=== PATIENT | male | born 1975 | race Caucasian/White ===

== ENCOUNTER 2017-11-19 16:16 | Emergency (ER) | payer OTHER ==
[~2017-11-19] VITALS: Ht 167.6 cm; Wt 70.3 kg
[~2017-11-19 16:16] MED LIST: BACL10 PO; CYCL10 PO; Flomax0.4 MG PO; MUPI1NAS; Norco 5-325 Ta1 EACH PO; SULTRISS PO; TRAM50 PO
[2017-11-19] MEDS ORDERED: CLARITIN10 MG PO (16:44)
== END 2017-11-19 16:57 | disposition home or self-care (01) ==
LOC: ER 16:16
DX: T78.49XA Other allergy, initial encounter (principal); F17.200 Nicotine dependence, unspecified, uncomplicated
CPT/HCPCS: 99282; J1100

== ENCOUNTER 2018-04-12 17:41 | Emergency (ER) | payer OTHER ==
[~2018-04-12] VITALS: Ht 162.6 cm; Wt 68.0 kg
[~2018-04-12 17:41] MED LIST changes: +CLARITIN10 MG PO
[2018-04-12] MEDS ORDERED: KETO10 PO (19:02)
== END 2018-04-12 19:11 | disposition home or self-care (01) ==
LOC: ER 17:41
DX: M71.22 Synovial cyst of popliteal space [Baker], left knee (principal); F17.200 Nicotine dependence, unspecified, uncomplicated; Z79.899 Other long term (current) drug therapy
CPT/HCPCS: 93971; 99283-25

== ENCOUNTER 2023-12-04 20:04 | Emergency (ER) | payer OTHER ==
[~2023-12-04] VITALS: Ht 157.5 cm; Wt 68.0 kg
[~2023-12-04 20:04] MED LIST changes: +KETO10 PO
[2023-12-04 20:28] VITALS: BP 143/98
== END 2023-12-04 21:30 | disposition left against medical advice (07) ==
LOC: ER 20:04
DX: T17.298A Other foreign object in pharynx causing other injury, initial encounter (principal); Z53.29 Procedure and treatment not carried out because of patient's decision for other reasons
CPT/HCPCS: 99281

== ENCOUNTER 2024-12-25 04:36 | Observation (INO) | payer OTHER ==
[~2024-12-25] VITALS: Ht 162.6 cm; Wt 72.6 kg
[~2024-12-25 04:36] MED LIST changes: +IBUP400 PO; +MUPIROCIN2210 TOP
[2024-12-25 05:37] LABS: BASOPHILS ABSOLUTE AUTO 0.09 K/mm3 (0.00-0.23); BASOPHILS PERCENT AUTO 1 % (0-2); EOSINOPHILS ABSOLUTE AUTO 0.01 K/mm3 (0.00-0.68); EOSINOPHILS PERCENT AUTO 0 % (0-6); Hematocrit 40.4 % (37.0-53.0); Hemoglobin 14.1 g/dL (13.5-17.5); IMMATURE GRAN ABSOLUTE AUTO 0.03 K/mm3 (0.00-0.10); IMMATURE GRAN PERCENT AUTO 0 % (0-1); LYMPHOCYTES ABSOLUTE AUTO 2.30 K/mm3 (0.84-5.20); LYMPHOCYTES PERCENT AUTO 23 % (21-46); MONOCYTES ABSOLUTE AUTO 1.25 K/mm3 (0.16-1.47); MONOCYTES PERCENT AUTO 13 % (4-13); Mean Corpuscular HGB Conc 34.9 g/dL (31.5-36.5); Mean Corpuscular Volume 90 fL (80-100); NEUTROPHILS ABSOLUTE AUTO 6.31 K/mm3 (1.96-9.15); NEUTROPHILS PERCENT AUTO 63 % (41-73); NRBC ABSOLUTE 0.00 K/mm3 (0.00-0.02); NRBC Auto 0.0 /100 WBC (0.0-0.2); Platelet Count 213 K/mm3 (150-400); RDW Coefficient Variation 11.7 % (11.7-14.2); RDW Standard Deviation 38.3 fL (35.1-46.3)
[2024-12-25 05:58] LABS: Alanine Aminotransfer (ALT/SGP 121.0 U/L (12-78); Albumin, Blood 4.2 g/dL (3.4-5.0); Albumin/Globulin Ratio 1.1 (0.8-1.8); Anion Gap 8.0 mmol/L (3-11); Aspartate Aminotrans (AST/SGOT 185.0 U/L (12-37); Bilirubin, Total 1.8 mg/dL (0.1-1.0); Blood Urea Nitrogen 28.0 mg/dL (8-24); CO2, Blood 27.0 mmol/L (21-32); Calcium, Blood 9.4 mg/dL (8.5-10.1); Chloride, Blood 106.0 mmol/L (98-108); Creatinine, Blood 1.15 mg/dL (0.60-1.20); Globulin, Blood 3.9 g/dL (2.2-4.0); Glucose, Blood 86.0 mg/dL (70-99); Potassium, Blood 4.0 mmol/L (3.5-5.5); Sodium, Blood 137.0 mmol/L (136-145); Total Protein, Blood 8.1 g/dL (6.4-8.2)
[2024-12-25 06:59] LABS: U Amphetamine Screen DETECTED; U Barbituate Screen Not Detected; U Benzodiazapine Screen Not Detected; U Buprenorphine Screen Not Detected; U Cannabinoids Screen Not Detected; U Cocaine Screen Not Detected; U Methadone Screen Not Detected; U Methamphetamine Screen DETECTED; U Opiates Screen Not Detected; U Oxycodone Screen Not Detected; U Phencyclidine Screen Not Detected
[2024-12-25 08:15] VITALS: BP 142/105
--- NOTE | 2024-12-25 12:40 | NUR ---
REPORT FROM POLA CORNEJO RN CARING FOR PATIENT. ALL QUESTIONS ANSWERED. WAITING FOR TRANSPORT TO MEDICAL FLOOR.
[2024-12-25] MEDS ORDERED: Buspirone HCl15 MG PO (13:48)
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
[2024-12-26] MEDS ORDERED: Enoxaparin 40 MG/0.4 ML SYR SC SCH (09:00)
[2024-12-26] MEDS ORDERED: CEPH500 PO (18:16)
== END 2024-12-25 14:04 | disposition left against medical advice (07) ==
LOC: ER 04:36 → MEDS 11:31
PROVIDERS: Emergency Medicine; ADMIT Internal Medicine
DX: R79.89 Other specified abnormal findings of blood chemistry (principal); F15.10 Other stimulant abuse, uncomplicated; R79.1 Abnormal coagulation profile; I10 Essential (primary) hypertension; Z53.29 Procedure and treatment not carried out because of patient's decision for other reasons
CPT/HCPCS: 71046; 71260; 80053; 84484; 85025; 85379; 93005; 93010; 99285-25; A9270; G0378; Q9967

== ENCOUNTER 2024-12-26 13:33 | Emergency (ER) | payer OTHER ==
[~2024-12-26] VITALS: Ht 162.6 cm; Wt 72.6 kg
[~2024-12-26 13:33] MED LIST changes: +Buspirone HCl15 MG PO
[2024-12-26 15:02] LABS: BASOPHILS ABSOLUTE AUTO 0.09 K/mm3 (0.00-0.23); BASOPHILS PERCENT AUTO 1 % (0-2); EOSINOPHILS ABSOLUTE AUTO 0.07 K/mm3 (0.00-0.68); EOSINOPHILS PERCENT AUTO 1 % (0-6); Hematocrit 39.5 % (37.0-53.0); Hemoglobin 13.6 g/dL (13.5-17.5); IMMATURE GRAN ABSOLUTE AUTO 0.03 K/mm3 (0.00-0.10); IMMATURE GRAN PERCENT AUTO 0 % (0-1); LYMPHOCYTES ABSOLUTE AUTO 2.07 K/mm3 (0.84-5.20); LYMPHOCYTES PERCENT AUTO 20 % (21-46); MONOCYTES ABSOLUTE AUTO 1.26 K/mm3 (0.16-1.47); MONOCYTES PERCENT AUTO 12 % (4-13); Mean Corpuscular HGB Conc 34.4 g/dL (31.5-36.5); Mean Corpuscular Volume 89 fL (80-100); NEUTROPHILS ABSOLUTE AUTO 7.08 K/mm3 (1.96-9.15); NEUTROPHILS PERCENT AUTO 67 % (41-73); NRBC ABSOLUTE 0.00 K/mm3 (0.00-0.02); NRBC Auto 0.0 /100 WBC (0.0-0.2); Platelet Count 266 K/mm3 (150-400); RDW Coefficient Variation 11.8 % (11.7-14.2); RDW Standard Deviation 38.3 fL (35.1-46.3)
[2024-12-26 15:40] LABS: Alanine Aminotransfer (ALT/SGP 91.0 U/L (12-78); Albumin, Blood 3.7 g/dL (3.4-5.0); Albumin/Globulin Ratio 0.9 (0.8-1.8); Anion Gap 8.0 mmol/L (3-11); Aspartate Aminotrans (AST/SGOT 90.0 U/L (12-37); Bilirubin, Total 1.2 mg/dL (0.1-1.0); Blood Urea Nitrogen 22.0 mg/dL (8-24); CO2, Blood 25.0 mmol/L (21-32); Calcium, Blood 8.7 mg/dL (8.5-10.1); Chloride, Blood 108.0 mmol/L (98-108); Creatinine, Blood 1.04 mg/dL (0.60-1.20); Globulin, Blood 4.1 g/dL (2.2-4.0); Glucose, Blood 100.0 mg/dL (70-99); Potassium, Blood 3.5 mmol/L (3.5-5.5); Sodium, Blood 137.0 mmol/L (136-145); Total Protein, Blood 7.8 g/dL (6.4-8.2)
[2024-12-26 16:29] VITALS: BP 128/85
[2024-12-26] MEDS ORDERED: CEPH500 PO (18:16)
== END 2024-12-26 18:20 | disposition home or self-care (01) ==
LOC: ER 13:33
PROVIDERS: Emergency Medicine
DX: L03.119 Cellulitis of unspecified part of limb (principal); L73.9 Follicular disorder, unspecified; Z87.891 Personal history of nicotine dependence
CPT/HCPCS: 71046; 80053; 83880; 84484; 85025; 93005; 93010; 99283-25

== ENCOUNTER 2025-04-23 15:32 | Inpatient (IN) | payer OTHER ==
[~2025-04-23] VITALS: Ht 162.6 cm; Wt 64.7 kg
[~2025-04-23 15:32] MED LIST changes: +CEPH500 PO
[2025-04-23] MEDS ORDERED: Vancomycin HCL 2,000 MG in NS 520 ML IV ONE (16:15)
[2025-04-23 16:32] LABS: BASOPHILS ABSOLUTE AUTO 0.08 K/mm3 (0.00-0.23); BASOPHILS PERCENT AUTO 0 % (0-2); EOSINOPHILS ABSOLUTE AUTO 0.00 K/mm3 (0.00-0.68); EOSINOPHILS PERCENT AUTO 0 % (0-6); Hematocrit 40.7 % (37.0-53.0); Hemoglobin 13.3 g/dL (13.5-17.5); IMMATURE GRAN ABSOLUTE AUTO 0.11 K/mm3 (0.00-0.10); IMMATURE GRAN PERCENT AUTO 1 % (0-1); LYMPHOCYTES ABSOLUTE AUTO 1.15 K/mm3 (0.84-5.20); LYMPHOCYTES PERCENT AUTO 5 % (21-46); MONOCYTES ABSOLUTE AUTO 2.32 K/mm3 (0.16-1.47); MONOCYTES PERCENT AUTO 11 % (4-13); Mean Corpuscular HGB Conc 32.7 g/dL (31.5-36.5); Mean Corpuscular Volume 88 fL (80-100); NEUTROPHILS ABSOLUTE AUTO 18.07 K/mm3 (1.96-9.15); NEUTROPHILS PERCENT AUTO 83 % (41-73); NRBC ABSOLUTE 0.00 K/mm3 (0.00-0.02); NRBC Auto 0.0 /100 WBC (0.0-0.2); Platelet Count 344 K/mm3 (150-400); RDW Coefficient Variation 12.9 % (11.7-14.2); RDW Standard Deviation 41.8 fL (35.1-46.3)
[2025-04-23 16:53] LABS: Alanine Aminotransfer (ALT/SGP 122.0 U/L (12-78); Albumin, Blood 3.1 g/dL (3.4-5.0); Albumin/Globulin Ratio 0.7 (0.8-1.8); Anion Gap 10.0 mmol/L (3-11); Aspartate Aminotrans (AST/SGOT 129.0 U/L (12-37); Bilirubin, Total 0.9 mg/dL (0.1-1.0); Blood Urea Nitrogen 14.0 mg/dL (8-24); CO2, Blood 27.0 mmol/L (21-32); Calcium, Blood 9.1 mg/dL (8.5-10.1); Chloride, Blood 96.0 mmol/L (98-108); Creatinine, Blood 1.01 mg/dL (0.60-1.20); Globulin, Blood 4.7 g/dL (2.2-4.0); Glucose, Blood 80.0 mg/dL (70-99); Potassium, Blood 4.0 mmol/L (3.5-5.5); Sodium, Blood 129.0 mmol/L (136-145); Total Protein, Blood 7.8 g/dL (6.4-8.2)
[2025-04-23] MEDS ORDERED: NS 1,000 ML IV SCH ×2 (17:25→19:00)
[2025-04-23] MEDS ORDERED: FLU VACC TS2025-26(6MOS UP)/PF 45 MCG/0.5 ML SYRINGE IM SCH (18:55)
[2025-04-23] MEDS ORDERED: Ondansetron HCl 2 MG / ML 2ML Vial IV PRN (19:00)
[2025-04-23] MEDS ORDERED: Vancomycin (Pharmacy Consult) IV SCH (19:00)
[2025-04-23] MEDS ORDERED: NS 1,000 ML IV ONE (19:00)
[2025-04-23] MEDS ORDERED: Lactobacil 2-S.Thermo-Bifido 1 1 Cap PO SCH ×2 (21:00)
[2025-04-23] MEDS ORDERED: CeFAZolin Sodium 2,000 MG in NS 100 ML IV SCH (21:00)
[2025-04-23] MEDS ORDERED: Prinivil10 MG PO (21:40)
[2025-04-23 21:56] VITALS: BP 134/85
[2025-04-24 04:08] VITALS: BP 127/76
[2025-04-24 05:10] LABS: BASOPHILS ABSOLUTE AUTO 0.07 K/mm3 (0.00-0.23); BASOPHILS PERCENT AUTO 0 % (0-2); EOSINOPHILS ABSOLUTE AUTO 0.01 K/mm3 (0.00-0.68); EOSINOPHILS PERCENT AUTO 0 % (0-6); Hematocrit 35.3 % (37.0-53.0); Hemoglobin 11.7 g/dL (13.5-17.5); IMMATURE GRAN ABSOLUTE AUTO 0.09 K/mm3 (0.00-0.10); IMMATURE GRAN PERCENT AUTO 1 % (0-1); LYMPHOCYTES ABSOLUTE AUTO 1.86 K/mm3 (0.84-5.20); LYMPHOCYTES PERCENT AUTO 11 % (21-46); MONOCYTES ABSOLUTE AUTO 1.95 K/mm3 (0.16-1.47); MONOCYTES PERCENT AUTO 12 % (4-13); Mean Corpuscular HGB Conc 33.1 g/dL (31.5-36.5); Mean Corpuscular Volume 89 fL (80-100); NEUTROPHILS ABSOLUTE AUTO 12.43 K/mm3 (1.96-9.15); NEUTROPHILS PERCENT AUTO 76 % (41-73); NRBC ABSOLUTE 0.00 K/mm3 (0.00-0.02); NRBC Auto 0.0 /100 WBC (0.0-0.2); Platelet Count 261 K/mm3 (150-400); RDW Coefficient Variation 13.1 % (11.7-14.2); RDW Standard Deviation 42.7 fL (35.1-46.3)
[2025-04-24 05:18] LABS: Prothrombin Time Results 11.6 Sec (9.7-11.5)
[2025-04-24 05:38] LABS: Alanine Aminotransfer (ALT/SGP 253.0 U/L (12-78); Albumin, Blood 2.4 g/dL (3.4-5.0); Albumin/Globulin Ratio 0.6 (0.8-1.8); Anion Gap 10.0 mmol/L (3-11); Aspartate Aminotrans (AST/SGOT 270.0 U/L (12-37); Bilirubin, Total 0.6 mg/dL (0.1-1.0); Blood Urea Nitrogen 16.0 mg/dL (8-24); CO2, Blood 25.0 mmol/L (21-32); Calcium, Blood 8.6 mg/dL (8.5-10.1); Chloride, Blood 104.0 mmol/L (98-108); Creatinine, Blood 0.94 mg/dL (0.60-1.20); Globulin, Blood 4.1 g/dL (2.2-4.0); Glucose, Blood 100.0 mg/dL (70-99); Magnesium, Blood 1.7 mg/dL (1.6-2.4); Potassium, Blood 3.8 mmol/L (3.5-5.5); Sodium, Blood 135.0 mmol/L (136-145); Total Protein, Blood 6.5 g/dL (6.4-8.2)
--- NOTE | 2025-04-24 06:38 | NUR ---
END OF SHIFT SUMMARY: A&Ox4. COOPERATIVE c CARE, BUT WITHDRAWN. CALLS APPROPRIATELY AND IS ABLE TO ADVOCATE NEEDS EFFECTIVELY. VSS. BREATHING EVEN AND UNLABORED c RA. CONTINENT OF BOWEL AND BLADDER; URINAL AT BEDSIDE, WHICH HE HAS NOT USED AND HAS NOT PROVIDED UA FOR UDS. NPO SINCE MIDNIGHT; ORTHO CONSULT TODAY; CALLED INTO [facility]TH[facility] ANSWERING SERVICE UPON ADMIT. PICTURE OF LEFT KNEE IN CHART. SURGICAL PACKET IN BINDER/CUPBOARD OUTSIDE ROOM. ORDERS PLACED FOR WOUND CARE. AREA OF ERYTHEMA MARKED c SKIN MARKER. LR @ 100mL/hr. NO ACUTE OVERNIGHT EVENTS. NO C / O PAIN OR DISCOMFORT. BED IN LOWEST POSITION, CALL LIGHT WITHIN REACH, ALL NEEDS MET. REPORT TO ONCOMING NURSE.
--- NOTE | 2025-04-24 11:47 | NUR ---
NPPR PERFORMED WITH DR. HORNE. PT REPORTING OXYCODNE 5MG NOT ENOUGH TO CONTROL PAIN. NEW ORDER FOR 10MG. DOSE GIVEN AND PT PREPARED FOR A SHOWER. CURRENTLY HAS VISITORS IN THE ROOM.
[2025-04-24] MEDS ORDERED: Tranexamic Acid 100 ML IV SCH (15:40)
[2025-04-24 15:59] VITALS: BP 134/84
--- NOTE | 2025-04-24 19:06 | NUR ---
ASSUMED CARE OF PT. A/O COOPERATIVE PT LAYING QUIETLY IN BED CURRENTLY NPO FOR POSSIBLE PROCEDURE. IV INFUSING CALL LIGHT WITHIN REACH.
--- NOTE | 2025-04-24 19:07 | NUR ---
SURGEON INTO SEE PT. SURGERY PLANED FOR TOMORROW AFTERNOON, PT TO BE NPO AFTER MIDNIGHT, LEFT KNEE RED HOT AND SWOLLEN WITH MARKER OUTLINE. NO CHANGE IN CONDITION CALL LIGHT WITHIN REACH, PT MEDICATED FOR PAIN.
[2025-04-24 21:19] VITALS: BP 137/88
[2025-04-24 22:06] LABS: U Amphetamine Screen DETECTED; U Barbiturate Screen Not Detected; U Benzodiazapine Screen Not Detected; U Buprenorphine Screen Not Detected; U Cannabinoids Screen Not Detected; U Cocaine Screen Not Detected; U Methadone Screen Not Detected; U Methamphetamine Screen DETECTED; U Opiates Screen Not Detected; U Oxycodone Screen DETECTED; U Phencyclidine Screen Not Detected
[2025-04-25 01:54] VITALS: BP 132/89
[2025-04-25 05:05] LABS: BASOPHILS ABSOLUTE AUTO 0.07 K/mm3 (0.00-0.23); BASOPHILS PERCENT AUTO 1 % (0-2); EOSINOPHILS ABSOLUTE AUTO 0.13 K/mm3 (0.00-0.68); EOSINOPHILS PERCENT AUTO 1 % (0-6); Hematocrit 31.9 % (37.0-53.0); Hemoglobin 10.6 g/dL (13.5-17.5); IMMATURE GRAN ABSOLUTE AUTO 0.05 K/mm3 (0.00-0.10); IMMATURE GRAN PERCENT AUTO 0 % (0-1); LYMPHOCYTES ABSOLUTE AUTO 2.40 K/mm3 (0.84-5.20); LYMPHOCYTES PERCENT AUTO 18 % (21-46); MONOCYTES ABSOLUTE AUTO 1.48 K/mm3 (0.16-1.47); MONOCYTES PERCENT AUTO 11 % (4-13); Mean Corpuscular HGB Conc 33.2 g/dL (31.5-36.5); Mean Corpuscular Volume 88 fL (80-100); NEUTROPHILS ABSOLUTE AUTO 9.43 K/mm3 (1.96-9.15); NEUTROPHILS PERCENT AUTO 70 % (41-73); NRBC ABSOLUTE 0.00 K/mm3 (0.00-0.02); NRBC Auto 0.0 /100 WBC (0.0-0.2); Platelet Count 305 K/mm3 (150-400); RDW Coefficient Variation 13.2 % (11.7-14.2); RDW Standard Deviation 43.5 fL (35.1-46.3)
[2025-04-25 05:34] LABS: Alanine Aminotransfer (ALT/SGP 130 U/L (12-78); Albumin, Blood 2.1 g/dL (3.4-5.0); Albumin/Globulin Ratio 0.5 (0.8-1.8); Anion Gap 9 mmol/L (3-11); Aspartate Aminotrans (AST/SGOT 101 U/L (12-37); Bilirubin, Total 0.5 mg/dL (0.1-1.0); Blood Urea Nitrogen 15 mg/dL (8-24); CO2, Blood 23 mmol/L (21-32); Calcium, Blood 8.3 mg/dL (8.5-10.1); Chloride, Blood 106 mmol/L (98-108); Creatinine, Blood 0.90 mg/dL (0.60-1.20); Globulin, Blood 4.0 g/dL (2.2-4.0); Glucose, Blood 95 mg/dL (70-99); Potassium, Blood 3.9 mmol/L (3.5-5.5); Sodium, Blood 134 mmol/L (136-145); Total Protein, Blood 6.1 g/dL (6.4-8.2); Vancomycin, Trough 11.8 ug/mL (5.0-10.0)
--- NOTE | 2025-04-25 06:03 | NUR ---
SHIFT SUMMARY PT A&Ox4. PT WAS IRRITABLE AT START OF SHIFT D/T BEEPING IV AND STAFF COMING INTO ROOM DURING SHIFT CHANGE WHILE PT WAS IN BATHROOM. NS INFUSING AT 100ml/hr. CONTINUING IV ABX. PT C/O PAIN IN LEFT LEG. MEDICATED PER EMAR AND LEG ELEVATED. NPO AT MIDNIGHT. VSS. IND IN ROOM. BED IN LOWEST POSITION AND CALL LIGHT IN REACH.
[2025-04-25 07:05] VITALS: BP 132/92
[2025-04-25 15:02] VITALS: BP 128/82
[2025-04-25 16:53] LABS: HEPATITIS A ANTIBODY, IGM Negative (Negative); HEPATITIS C AB CIA INTERP Negative (Negative); HEPATITIS C ANTIBODY CIA INDEX 0.06 IV
--- NOTE | 2025-04-25 17:17 | NUR ---
NO ACUTE CHANGES THIS SHIFT. PLAN FROM PROCEDURE TOMORROW, NPO AT MIDNIGHT. KNEE STABILIZER IN PLACE REQUESTED BY DR. LANGLEY. IV FLUIDS CONTINUED. PT PLEASANT FOR MAJORITY OF DAY. REFUSED PAIN REASSESMENT AND YELLED "NO" TO RN ATTEMPTING TO ENTER ROOM THIS EVENING. CALLS APPROPRIATELY.
[2025-04-25 20:40] VITALS: BP 142/93
[2025-04-26] VITALS (22 sets, daily range): BP systolic 125–179; BP diastolic 89–116
--- NOTE | 2025-04-26 04:32 | NUR ---
SHIFT SUMMARY PT A&Ox4. MOSTLY PLEASANT THIS SHIFT. CONTINUING NS FLUIDS AT 100ml/hr. MEDICATED PER EMAR FOR PAIN IN LEFT LEG. CONTINUING IV ABX. PT NPO AT MIDNIGHT. BED IN LOWEST POSITION AND CALL LIGHT IN REACH.
[2025-04-26 05:03] LABS: BASOPHILS ABSOLUTE AUTO 0.04 K/mm3 (0.00-0.23); BASOPHILS PERCENT AUTO 0 % (0-2); EOSINOPHILS ABSOLUTE AUTO 0.14 K/mm3 (0.00-0.68); EOSINOPHILS PERCENT AUTO 1 % (0-6); Hematocrit 30.2 % (37.0-53.0); Hemoglobin 10.0 g/dL (13.5-17.5); IMMATURE GRAN ABSOLUTE AUTO 0.04 K/mm3 (0.00-0.10); IMMATURE GRAN PERCENT AUTO 0 % (0-1); LYMPHOCYTES ABSOLUTE AUTO 1.99 K/mm3 (0.84-5.20); LYMPHOCYTES PERCENT AUTO 20 % (21-46); MONOCYTES ABSOLUTE AUTO 1.32 K/mm3 (0.16-1.47); MONOCYTES PERCENT AUTO 13 % (4-13); Mean Corpuscular HGB Conc 33.1 g/dL (31.5-36.5); Mean Corpuscular Volume 89 fL (80-100); NEUTROPHILS ABSOLUTE AUTO 6.50 K/mm3 (1.96-9.15); NEUTROPHILS PERCENT AUTO 65 % (41-73); NRBC ABSOLUTE 0.00 K/mm3 (0.00-0.02); NRBC Auto 0.0 /100 WBC (0.0-0.2); Platelet Count 302 K/mm3 (150-400); RDW Coefficient Variation 13.4 % (11.7-14.2); RDW Standard Deviation 44.0 fL (35.1-46.3)
[2025-04-26 05:38] LABS: Alanine Aminotransfer (ALT/SGP 92.0 U/L (12-78); Albumin, Blood 1.9 g/dL (3.4-5.0); Albumin/Globulin Ratio 0.5 (0.8-1.8); Anion Gap 10.0 mmol/L (3-11); Aspartate Aminotrans (AST/SGOT 86.0 U/L (12-37); Bilirubin, Total 0.3 mg/dL (0.1-1.0); Blood Urea Nitrogen 14.0 mg/dL (8-24); CO2, Blood 23.0 mmol/L (21-32); Calcium, Blood 8.0 mg/dL (8.5-10.1); Chloride, Blood 108.0 mmol/L (98-108); Creatinine, Blood 0.84 mg/dL (0.60-1.20); Globulin, Blood 4.1 g/dL (2.2-4.0); Glucose, Blood 98.0 mg/dL (70-99); Potassium, Blood 3.7 mmol/L (3.5-5.5); Sodium, Blood 137.0 mmol/L (136-145); Total Protein, Blood 6.0 g/dL (6.4-8.2)
--- NOTE | 2025-04-26 13:15 | NUR ---
INTO SDS VIA GURNEY FROM FLOOR ROOM. History, Chart, Medications and Allergies reviewed before start of procedure.Patient confirms NPO status and agrees with scheduled surgery. Lungs clear T/O to Auscultation.20G IV TO LEFT AC PATENT, FLUSHED EASILY, INFUSING TO ANTIBIOTICS AND LR PER ORDER.
[2025-04-26] MEDS ORDERED: Lidocaine HCL 1% 10 ML MDV ONE (13:30)
[2025-04-26] MEDS ORDERED: Bupivacaine HCl 2.5 MG/ML 10ML P/F Injection ONE (13:31)
[2025-04-26] MEDS ORDERED: FentaNYL Citrate 50 MCG/ML 2 ML Injection ONE ×2 (13:35→15:21)
[2025-04-26] MEDS ORDERED: Ondansetron HCl 2 MG / ML 2ML Vial ONE ×2 (13:40→15:16)
[2025-04-26] MEDS ORDERED: HYDROmorphone HCl/Pf 1MG SYR IV PRN ×2 (13:45→17:30)
[2025-04-26] MEDS ORDERED: FentaNYL Citrate 50 MCG/ML 2 ML Injection IV PRN ×3 (13:45→17:10)
[2025-04-26] MEDS ORDERED: Ondansetron HCl 2 MG / ML 2ML Vial IV PRN (13:50)
[2025-04-26] MEDS ORDERED: Albuterol 2.5 MG/3 ML VIAL INH PRN (13:50)
[2025-04-26] MEDS ORDERED: HYDROmorphone HCl/Pf 1MG SYR ONE (15:04)
--- NOTE | 2025-04-26 16:28 | NUR ---
PT ARRIVED FROM DAY SURGERY AT APPROXIMATELY 1620. PAIN MEDICATED PER EMAR. UPON ASSESSMENT, PT WAS UP EATING A SALAD. THIS RN INSTRUCTED PT TO KEEP HIS IMMOBILIZER ON AT ALL TIMES, PT VERBALIZED UNDERSTANDING.
[2025-04-26] MEDS ORDERED: HydrALAZINE HCl 20 MG / ML 1ML Vial IV PRN (17:10)
--- NOTE | 2025-04-26 17:40 | NUR ---
PT REPORTS 10/10 PAIN. PT DECLINED FENTANYL, PT STATES "I DONT WANT FENTANYL. CONCEPCION NEVER USED IT AND I NEVER WILL." DR. HORNE NOTIFIED. PER DR. HORNE D/C FENTANYL AND ORDER DILAUDID 0.5-1 MG Q4 PRN FOR SEVERE PAIN. DISCUSSED MED CHANGE WITH PT. PER PT, DILAUDID IS ACCEPTABLE.
--- NOTE | 2025-04-26 17:50 | NUR ---
THIS RN WALKED INTO PTS ROOM, ON ASSESSMENT PT WAS SCRATCHING HIS SKIN EXCESSIVELY STATING "I NEED MORE BENADRYL". NOTIFIED DR. HORNE OF THIS ASSESSMENT, SEE CHANGES IN EMAR.
--- NOTE | 2025-04-26 18:23 | NUR ---
PT A/OX4. HE HAS BEEN COOPERATIVE WITH CARE. MOOD IS SOMEWHAT LABILE. HE HAS AN IMMOBILIZER ON HIS LLE, PT EDUCATED ON THE IMPORTANCE OF KEEPING IT ON, PT VERBALIZED UNDERSTANDING. HE HAS A AGUEDA TUBE DRAINING SEROSANGUINOUS FLUID. SOME SMALL CLOTS WERE VISUALIZED. PT USES CALL LIGHT APPROPRIATELY. PAIN AND ITCHING TREATED PER EMAR. PT IS CURRENTLY RESTING IN BED, CALL LIGHT IS IN REACH, CHEST RISE AND FALL IS SYMMETRICAL. NO ACUTE NEEDS AT THIS TIME.
[2025-04-27 03:44] VITALS: BP 150/99
[2025-04-27 04:56] LABS: BASOPHILS ABSOLUTE AUTO 0.08 K/mm3 (0.00-0.23); BASOPHILS PERCENT AUTO 1 % (0-2); EOSINOPHILS ABSOLUTE AUTO 0.17 K/mm3 (0.00-0.68); EOSINOPHILS PERCENT AUTO 2 % (0-6); Hematocrit 32.7 % (37.0-53.0); Hemoglobin 10.6 g/dL (13.5-17.5); IMMATURE GRAN ABSOLUTE AUTO 0.05 K/mm3 (0.00-0.10); IMMATURE GRAN PERCENT AUTO 1 % (0-1); LYMPHOCYTES ABSOLUTE AUTO 2.19 K/mm3 (0.84-5.20); LYMPHOCYTES PERCENT AUTO 21 % (21-46); MONOCYTES ABSOLUTE AUTO 0.94 K/mm3 (0.16-1.47); MONOCYTES PERCENT AUTO 9 % (4-13); Mean Corpuscular HGB Conc 32.4 g/dL (31.5-36.5); Mean Corpuscular Volume 89 fL (80-100); NEUTROPHILS ABSOLUTE AUTO 6.91 K/mm3 (1.96-9.15); NEUTROPHILS PERCENT AUTO 67 % (41-73); NRBC ABSOLUTE 0.00 K/mm3 (0.00-0.02); NRBC Auto 0.0 /100 WBC (0.0-0.2); Platelet Count 385 K/mm3 (150-400); RDW Coefficient Variation 13.2 % (11.7-14.2); RDW Standard Deviation 43.6 fL (35.1-46.3)
[2025-04-27 05:19] LABS: Alanine Aminotransfer (ALT/SGP 82.0 U/L (12-78); Albumin, Blood 2.1 g/dL (3.4-5.0); Albumin/Globulin Ratio 0.4 (0.8-1.8); Anion Gap 6.0 mmol/L (3-11); Aspartate Aminotrans (AST/SGOT 80.0 U/L (12-37); Bilirubin, Total 0.3 mg/dL (0.1-1.0); Blood Urea Nitrogen 12.0 mg/dL (8-24); CO2, Blood 30.0 mmol/L (21-32); Calcium, Blood 8.1 mg/dL (8.5-10.1); Chloride, Blood 104.0 mmol/L (98-108); Creatinine, Blood 0.82 mg/dL (0.60-1.20); Globulin, Blood 4.7 g/dL (2.2-4.0); Glucose, Blood 120.0 mg/dL (70-99); Potassium, Blood 3.8 mmol/L (3.5-5.5); Sodium, Blood 136.0 mmol/L (136-145); Total Protein, Blood 6.8 g/dL (6.4-8.2)
--- NOTE | 2025-04-27 05:19 | NUR ---
SHIFT SUMMARY PT A&Ox4. SOMNOLENT BUT PLEASNT WHEN AWAKE. SBP ELEVATED AT START OF SHIFT. HOSPITALIST NOTIFIED AND ORDER GIVEN FOR ONE TIME DOSE OF AMLODIPINE. PT's IMPROVED TO 159/96. MEDICATED PER EMAR FOR PAIN. CONTINUING NS AT 100ml/hr. LEG IMOBILIZER IN PLACE T/O NIGHT. SCANT AMOUNT OF RED FLUID FROM AGUEDA DRAIN. BED IN LOWEST POSITION AND CALL LIGHT IN REACH.
[2025-04-27 07:34] VITALS: BP 142/92
[2025-04-27 14:22] VITALS: BP 127/79
[2025-04-27 16:18] LABS: Vancomycin, Trough 13.9 ug/mL (5.0-10.0)
--- NOTE | 2025-04-27 16:19 | NUR ---
SHIFT SUMMARY PATIENT IN BED MOST OF THIS SHIFT. IMMOBILIZER IN PLACE THROUGHOUT SHIFT. DECLINED PAIN MEDICATIONS THIS AM, STATED, "I JUST WANT TO SEE WHAT HAPPENS IF I DON'T HAVE THEM", EDUCATION WAS PROVIDED. AGUEDA DRAIN INTACT, DRAINING RED. VOIDING WELL, NO BM THIS SHIFT. ABLE TO MAKE NEEDS KNOWN. CALL LIGHT IN REACH.
[2025-04-27 19:42] VITALS: BP 131/77
[2025-04-28 02:35] VITALS: BP 145/99
--- NOTE | 2025-04-28 04:31 | NUR ---
Rn shift summary: Patient is alert and oriented. Pt has been bedrest all night. Does use urinal to void. Pt has been medicated x1 with roxicodone 10 mg at beginning of shift. Pt has slept between cares. L knee imobilizer in place, chel wrap underneath is C/D/I. Pt getting IV antibiotics as ordered. Pt voices upset about being positive for MRSA in his knee when he has been getting ABX for several days. Explained to pt that cultures were from when I/D was done and that it takes several weeks to treat MRSA. Pt has been cooperative with no outbursts. Call light and urinal at bedside. Will continue to monitor.
[2025-04-28 05:42] LABS: Alanine Aminotransfer (ALT/SGP 57.0 U/L (12-78); Albumin, Blood 2.1 g/dL (3.4-5.0); Albumin/Globulin Ratio 0.4 (0.8-1.8); Anion Gap 8.0 mmol/L (3-11); Aspartate Aminotrans (AST/SGOT 44.0 U/L (12-37); Bilirubin, Total 0.3 mg/dL (0.1-1.0); Blood Urea Nitrogen 12.0 mg/dL (8-24); CO2, Blood 26.0 mmol/L (21-32); Calcium, Blood 8.8 mg/dL (8.5-10.1); Chloride, Blood 107.0 mmol/L (98-108); Creatinine, Blood 0.77 mg/dL (0.60-1.20); Globulin, Blood 4.9 g/dL (2.2-4.0); Glucose, Blood 85.0 mg/dL (70-99); Potassium, Blood 4.0 mmol/L (3.5-5.5); Sodium, Blood 137.0 mmol/L (136-145); Total Protein, Blood 7.0 g/dL (6.4-8.2)
[2025-04-28 07:23] VITALS: BP 145/94
[2025-04-28] MEDS ORDERED: Enoxaparin 40 MG/0.4 ML SYR SC SCH (09:00)
[2025-04-28] MEDS ORDERED: Polyethylene Glycol 3350 17 gm PO ONE (12:20)
[2025-04-28] MEDS ORDERED: NS 250 ML IV PRN (17:15)
--- NOTE | 2025-04-28 19:28 | NUR ---
PT ALERT AND ORIENTED X4, WBAT TO LEFT LEG, ADDITIONAL BOWEL AID ADDED TO MEDICATIONS DUE TO PT STATING HE IS CONSTIPATED, IV ANTIBIOTICS, VOIDS INTO URINAL. PRN PAIN MEDICATION NEED. DRESSING TO LEFT LEG CKI, IMMOBOLIZER IN PLACE. CALL LIGHT IN REACH.
[2025-04-28 19:39] VITALS: BP 135/95
--- NOTE | 2025-04-29 03:09 | NUR ---
Patient alert and oriented, lungs clear, states pain increasing, asked if needed pain medication at bed time, asks for pain meds and benadryl because pain medication makes him itch, no rash noted, IV antibiotics continued, up to bathroom as needed with 1 person assist and walker, patient states that pain medication helped with pain, resting comfortably, easily awaken as needed, educated compensation and benefits analyst system, call light in reach, bed in low and locked position, will continue to monitor
[2025-04-29 04:41] LABS: Vancomycin, Trough 19.5 ug/mL (5.0-10.0)
[2025-04-29 05:06] VITALS: BP 152/97
[2025-04-29 07:27] VITALS: BP 145/95
[2025-04-29] MEDS ORDERED: Polyethylene Glycol 3350 17 gm PO SCH (09:00)
[2025-04-29] MEDS ORDERED: Magnesium Hydroxide Conc 10 ML UDC PO ONE (13:45)
[2025-04-29 15:11] VITALS: BP 127/85
--- NOTE | 2025-04-29 19:25 | NUR ---
PT ALERT AND ORIENTED X4, INDEPENDENT IN ROOM-WBAT, CMS INTACT TO LEFT LEFT-IMMOBOLIZER IN PLACE. PO PAIN MEDICATIONS FOR LEFT KNEE PAIN. TOLERATING PO INTAKE, AFIBRILE, VITALS SIGNS STABLE. PER DR YVON SAUCEDO AGUEDA DRAIN TODAY- PT TOLERATED PROCEDURE WELL, WOUND PINK AT INCISIONAL SITE SUTURES INTACT, WOUND REDRESSED PER ORDER, TRACI WRAP REAPPLIED AND IMMOBOLIZER IN PLACE. CALL LIGHT IN REACH.
[2025-04-29 19:52] VITALS: BP 138/89
[2025-04-30 03:06] VITALS: BP 141/93
[2025-04-30 04:56] LABS: Hematocrit 35.8 % (37.0-53.0); Hemoglobin 11.8 g/dL (13.5-17.5); Mean Corpuscular HGB Conc 33.0 g/dL (31.5-36.5); Mean Corpuscular Volume 88 fL (80-100); NRBC ABSOLUTE 0.00 K/mm3 (0.00-0.02); NRBC Auto 0.0 /100 WBC (0.0-0.2); Platelet Count 453 K/mm3 (150-400); RDW Coefficient Variation 13.2 % (11.7-14.2); RDW Standard Deviation 42.3 fL (35.1-46.3)
[2025-04-30 05:16] LABS: Alanine Aminotransfer (ALT/SGP 44.0 U/L (12-78); Albumin, Blood 2.4 g/dL (3.4-5.0); Albumin/Globulin Ratio 0.5 (0.8-1.8); Anion Gap 9.0 mmol/L (3-11); Aspartate Aminotrans (AST/SGOT 37.0 U/L (12-37); Bilirubin, Total 0.2 mg/dL (0.1-1.0); Blood Urea Nitrogen 24.0 mg/dL (8-24); CO2, Blood 25.0 mmol/L (21-32); Calcium, Blood 8.8 mg/dL (8.5-10.1); Chloride, Blood 107.0 mmol/L (98-108); Creatinine, Blood 0.74 mg/dL (0.60-1.20); Globulin, Blood 4.7 g/dL (2.2-4.0); Glucose, Blood 91.0 mg/dL (70-99); Potassium, Blood 4.5 mmol/L (3.5-5.5); Sodium, Blood 136.0 mmol/L (136-145); Total Protein, Blood 7.1 g/dL (6.4-8.2)
--- NOTE | 2025-04-30 05:50 | NUR ---
SHIFT SUMMARY PATIENT ADMITTED FOR SEVERE SEPSIS. ALERT AND ORIENTED X4. NO COMPLAINTS OF PAIN THIS SHIFT. NO ACUTE OVERNIGHT EVENTS. INDEPENDENT IN ROOM. CALL LIGHT WITHIN REACH. BED IN LOWEST POSITION FOR SAFETY.
[2025-04-30 07:43] VITALS: BP 140/88
[2025-04-30 15:42] VITALS: BP 122/85
--- NOTE | 2025-04-30 16:49 | NUR ---
PT A/OX4. MOOD HAS REMAINED LABILE. IMMOBILZER IN PLACE. PT IS INDEPENDENT IN ROOM. PLAN IS TO D/C TO [facility]. CONT IV VANCO. PT IS IN BED LISTENING TO MUSIC AT THIS TIME/ BED IS IN LOWEST POSITION, CALL LIGHT IS IN REACH. NO ACUTE NEEDS AT THIS TIME.
[2025-04-30 19:33] VITALS: BP 132/82
[2025-05-01 03:55] VITALS: BP 131/87
--- NOTE | 2025-05-01 04:51 | NUR ---
SHIFT SUMMARY PATIENT ADMITTED FOR SEVERE SEPSIS. PATIENT ALERT AND ORIENTED X4. NO BEHAVIOURS NOTED THIS SHIFT. PATIENT COMPLAINING OF "RANDOM BLOOD BLISTERS" ON HIS RIGHT HAND, HE HAS TWO BLACK SPOTS ONE NEAR THE TIP OF HIS 5TH FINGER AND ONE AT THE BASE OF HIS THUMB WHICH HE REPORTS "DIGGING AT TO POP IT." PATIENT STATES "THEY HAVE BEEN APPEARING ON MY BIG TOE FOR A WHILE AND I FILE IT DOWN WITH A PUMICE STONE TO MAKE IT GO AWAY." PATIENT EDUCATED TO NOT "DIG" AT THE BLOOD BLISTERS" PATIENT HAD COMPLAINTS OF PAIN ONCE THIS SHIFT AND WAS MEDICATED PER EMAR. INDEPENDENT IN ROOM. BED RAILS UP X2. BED IN LOWEST POSITION FOR SAFETY. CALL LIGHT WITHIN REACH.
[2025-05-01 07:17] LABS: Creatinine, Blood 0.75 mg/dL (0.60-1.20); Vancomycin, Trough 13.8 ug/mL (5.0-10.0)
[2025-05-01 07:52] VITALS: BP 131/97
[2025-05-01 15:21] VITALS: BP 112/84
--- NOTE | 2025-05-01 16:24 | NUR ---
NO ACUTE CHANGES THIS SHIFT. IV ANTIBIOTICS CONTINUED. WOUND CARE COMPLETED THIS SHIFT PER ORDER. IMMOBILIZER IN PLACE. PT IS IRRITABLE BUT COOPERATIVE WITH CARE. PLAN TO STAY ON TOP OF PO PAIN MEDICATIONS. PT STATED THIS HELPED WITH PAIN MANAGEMENT TODAY. PT IS ALERT AND ORIENTED X4, CALLS APPROPRIATELY. PT CONCERNED FOR BLOOD IN STOOL. BREAK NURSE RN ASSESSED STOOL WHILE THIS RN WAS AT LUNCH. PER RN, STOOL DID NOT LOOK CONCERNING FOR BLOOD. STOOL LIGHT BROWN. INFORMED PT TO KEEP AN EYE ON STOOL AND LET STAFF KNOW IF CONCERNED.
[2025-05-01 19:14] VITALS: BP 144/92
[2025-05-02 03:42] VITALS: BP 128/86
--- NOTE | 2025-05-02 04:30 | NUR ---
SHIFT SUMMARY 49 YR M ADMITTED ON 04/23/25. FULL CODE. NO ACUTE CHANGES THIS SHIFT. PT APPEARS TO HAVE RESTED FOR MOST OF THE MIGHT. OF 429 HE HAS NOT REQUESTED PAIN MEDS. HE HAS BEEN PLEASANT AND COOPERATIVE WITH CARE. NO NEW CHANGES TO REPORT. BED IN LOW POSITION AND CALL LIGHT IN REACH.
[2025-05-02 07:54] VITALS: BP 125/88
[2025-05-02 15:16] VITALS: BP 129/77
--- NOTE | 2025-05-02 19:05 | NUR ---
NO ACUTE CHANGES THIS SHIFT. PT IS COOPERATIVE WITH CARE AND AGREEABLE TO WOUND CARE. WOUND CARE COMPLETED THIS SHIFT ORDERED. PAIN TREATED PER EMAR. INDEPENDENT IN THE ROOM WITH KNEE IMMOBILIZER IN PLACE. CALLS APPROPRIATELY FOR NEEDS
[2025-05-02 19:13] VITALS: BP 136/100
[2025-05-03 03:30] VITALS: BP 147/93
--- NOTE | 2025-05-03 04:34 | NUR ---
SHIFT SUMMARY 49 YR M ADMITTED ON 04/23/25. FULL CODE. NO ACUTE CHANGES THIS SHIFT. PT HAD A VISITOR THIS SHIFT AND SHORTLY AFTER HE ARRIVED SECURITY CAME UP TO SPEAK TO THIS NURSE. SECURITY STATED THAT THEY FOUND A BAGGIE OF METH IN THE HALLWAY WHERE THE VISITOR HAD JUST WALKED THROUGH. THEY BELEIVE THE VISITOR DROPPED IT BUT STATED THAT THEY COULD NOT PROVE IT AND THEY JUST WANTED TO MAKE THIS NURSE AWARE THAT THE VISITOR MAY HAVE BEEN BRINGING DRUGS IN TO THE PT. THE VISITOR STAYED FOR A COUPLE OF HOURS THEN LEFT. PT HAS BEEN PLEASANT AND COOPERATIVE THIS SHIFT. MEDICATED ONCE THIS SHIFT FOR PAIN. NOTHING ELSE NEW TO REPORT. BED IN LOW POSITION AND CALL LIGHT IN REACH.
[2025-05-03 07:36] VITALS: BP 162/100
--- NOTE | 2025-05-03 10:16 | NUR ---
HCP ROUNDING- ROUNDED WITH [facility]. PT IS READY TO DISCHARGE BUT IS NOT IN AGREEMENT ON WHERE TO DISCHARGE TO FOR CONTINUATION OF CARE. CARE MANAGEMENT IS INVOLVED.
[2025-05-03 15:43] VITALS: BP 136/92
--- NOTE | 2025-05-03 19:03 | NUR ---
SHIFT NOTES- PT IS WAITING FOR DISCHARGE DECISIONS TO BE MADE.
[2025-05-03 19:54] VITALS: BP 135/96
[2025-05-04 02:34] VITALS: BP 116/87
--- NOTE | 2025-05-04 05:25 | NUR ---
SHIFT SUMMARY PT IS A&OX4. PT CONTINUED TO BE IRRITABLE, BUT COOPERATIVE WITH CARE. PLAN IS FOR PICC PLACEMENT TODAY, IF PT CONSENTS TO IT. PT EXPERESSED CONCERNS FOLLOWING DISCHARGE FROM THE HOSPITAL. NO ACUTE CHANGES THIS SHIFT. VANCO ADMINISTERED. PT FRIEND AT BED SIDE THIS SHIFT. PT RESTED T/O SHIFT WITH EVEN AND UNLABORED RESPIRATIONS, BED IN THE LOWEST POSITION, AND CALL LIGHT WITHIN REACH.
[2025-05-04 07:10] VITALS: BP 128/87
--- NOTE | 2025-05-04 08:32 | NUR ---
At approxamitly 0730, It was reported to me this patient had refused a lab draw and called the tech a "pelon". I was also told a nurse had seen a vap devise yesterday. I entered the patients room and asked to have the devise given to me so it could be locked up. The patient began yelling at me " you fucking bitch get out of my room". I informed him that this behavior was not going to be tolerated. I asked him politely to not yell. This escelated him even more. I then informed him that we would need to have a sitter to watch him to insure he would not vap. I also informed him that I would need to go over a behavior contract with him. During this whold prossess he continued to yell at me, calling me the above name and get out of his room. (we also asked his visitor to leave. The visitor left) I also left and returned with a written behavior contract. He would not let me go over it with him. He became agressive escalating in his yelling. Then I informed him that he had 2 choices. He could allow staff to care for him and not yell or he could leave aginst medical advice. He continued to call me "a FUCKING BITCH" I informed him I would call the police and have him trespassed. I infact did call the police. They arrived, Kyree stood and instantly started to become belligerent with the officer. The officer called for back up. At this moment the physician is writting discharge orders with outpatient antibiotics . 4 officers are outside the room standing by.
[2025-05-04] MEDS ORDERED: MIRALAX17 GM PO (08:38)
[2025-05-04] MEDS ORDERED: VISBIOME 112.51 EACH PO (08:39)
--- NOTE | 2025-05-04 10:00 | NUR ---
SHIFT SUMMARY AND DISCHARGE PATIENT REFUSING TO HAVE LABS DRAWN THIS MORNING. PATIENT TELLING LAB TO "GET THE FUCK OUT OF MY ROOM!" NURSE ATTEMPTED TO EDUCATE PATIENT RELATED TO THE NEED TO HAVE LABS DRAWN FOR APPROPRIATE DOSING OF ANTIBIOTICS. PATIENT YELLED AT NURSING STAFF AND TOLD THEM TO "GET THE FUCK OUT OF MY ROOM!" "I AM NOT GOING TO LET THAT NIGGER DRAW MY BLOOD!" SECURITY CONTACTED AND INDEPENDENT CONSULTANT NOTIFIED OF PATIENT YELLING AT STAFF AND REFUSING CARE. PATIENT ALSO HAD MULTIPLE VAPING DEVICES IN HIS ROOM ON THE PREVIOUS DAY. PATIENT WAS INFORMED OF THE POLICY RELATED TO DEVICES AT THAT TIME AND HE STATED THAT HE "WAS NOT GIVING THEM TO ME TO SECURE. CHARGE NURSES WERE NOTIFIED. INDEPENDENT CONSULTANT AND SECURITY CAME UP TO TALK WITH PATIENT ABOUT VAPING DEVICES AND BEHAVIOR. PATIENT YELLING AT INDEPENDENT CONSULTANT CALLING HER A "BITCH" AND TELLING HER "TO GET THE FUCK OUT OF MY ROOM!" VISITOR IN ROOM ASKED TO LEAVE. VISITOR LEFT TAKING MULTIPLE BAGS OF BELONGINGS WITH HIM. INDEPENDENT CONSULTANT CONTINUED TO ATTEMPT TO TALK TO PATIENT ABOUT VAPING POLICY AND BEHAVIOR. PATIENT WOULD NOT ALLOW INDEPENDENT CONSULTANT TO FINISH EXPLAINING POLICY AND BEHAVIOR CONTRACT. SECURITY PRESENT WITH INDEPENDENT CONSULTANT. PATIENT CONTINUED TO YELL "GET THE FUCK OUT OF MY ROOM!" MIXER OPERATOR METEOROLOGY TEACHER CONTACTED AND POLICE CONTACTED. OFFICER ARRIVED AND PATIENT STARTED YELLING AT THE OFFICER ABOUT AN INCIDENT THAT HAPPENED PRIOR TO ADMISSION WITH ANOTHER OFFICER. PATIENT DEMANDING THE OFFICER TO CONTACT THE OTHER RAIL DETECTOR CAR OPERATOR. PATIENT CONTINUED TO YELL AT THE OFFICER AND TELL HIM THAT HE IS "NOT LEAVING MY FUCKING ROOM!" RAIL DETECTOR CAR OPERATOR HAD TO DRAW HIS TAZER AT ONE POINT TO GET PATIENT TO BACK OFF. PATIENT STATING "I WILL GO TO [facility] AND GET MY PICC NOW!" PATIENT NAKED DURING INCIDENT AND WHEN ASKED TO PACK UP HIS BELONGINGS, PATIENT PACKED EVERYTHING IN THE ROOM THAT HE WAS ABLE TO REMOVE. PATIENT ATTEMTED TO TAKE WALKER FROM ROOM. POLICE NOTIFIED THAT IT WAS [employer] AND WAS RETURNED AFTER PATIENT LEFT THE HOSPITAL BY POLICE. PATIENT DISCHARGED WITH ORDERS TO FOLLOW UP WITH [facility]. ORDERS SENT TO ADMITTING TO [facility], [facility] CONTACTED ABOUT PATIENT. CONTACT INFORMATION REGARDING [facility] ADDED TO DISCHARGE PAPERWORK. DISCHARGE PAPERWORK GIVEN TO RAIL DETECTOR CAR OPERATOR. PATIENT ESCORTED OUT BY POLICE.
--- NOTE | 2025-05-04 12:07 | NUR ---
ADDITIONAL NOTE ATTEMPTED TO GIVE PATIENT A DOSE OF VANCO PRIOR TO DISCHARGE. PATIENT STATED " NO ONE FROM HERE IS FUCKING TOUCHING ME!" PATIENT REFUSED TO HAVE IV REMOVED PRIOR TO DISCHARGE. INSTRUCTED BY POLICE TO NOT TOUCH PATIENT AND LET HIM DISCHARGE WITH IV IN PLACE BECAUSE OF THREATENING BEHAVIOR TOWARDS STAFF.
== END 2025-05-04 09:11 | DRG 854 ==
LOC: ER 15:32 → MEDS 18:54 → ENPENDDIS 04-30 16:56 → MEDS 05-04 09:11
PROVIDERS: Emergency Medicine; Family Medicine; Internal Medicine; Nurse Practitioner Acute Care; Orthopaedic Surgery; ADMIT Internal Medicine
PROC: 0Y9G0ZZ Drainage of Left Knee Region, Open Approach (ICD-10-PCS; 2025-04-23)
PROC: 3E03329 Introduction of Other Anti-infective into Peripheral Vein, Percutaneous Approach (ICD-10-PCS; 2025-04-23)
PROC: 0MBP0ZZ Excision of Left Knee Bursa and Ligament, Open Approach (ICD-10-PCS; principal; 2025-04-26 14:00)
DX: A41.02 Sepsis due to Methicillin resistant Staphylococcus aureus (principal); E87.1 Hypo-osmolality and hyponatremia; Z59.00 Homelessness unspecified; L02.416 Cutaneous abscess of left lower limb; L03.116 Cellulitis of left lower limb; M00.062 Staphylococcal arthritis, left knee; E87.21 Acute metabolic acidosis; R65.20 Severe sepsis without septic shock; I10 Essential (primary) hypertension; F19.10 Other psychoactive substance abuse, uncomplicated; E86.1 Hypovolemia; M71.162 Other infective bursitis, left knee; Z87.891 Personal history of nicotine dependence
CPT/HCPCS: 36415; 73701; 80053; 80074; 80202; 82565; 83605; 83735; 85025; 85027; 85610; 85651; 86140; 86141; 87040; 87070; 87075; 87077; 87147; 87186; 87205; 94760; 96365-59; 97110; 97116; 97161; 97530; 99284-25; A9270; J0360; J0690; J1171; J1650; J2003; J2405; J2704; J3010; J3373; J7030; J7040; J7050; J7120; Q9967